=== PATIENT | female | born 1935 | race Caucasian/White ===

== ENCOUNTER → 2016-08-18 | Outpatient (CLI) | payer MEDICARE, BC ==
[~2016-08-18] MED LIST: ACET-1600 PO; ALBU18HF INH; ASCO500T12 PO; ASPI-496 PO; BECL8.7A5 INH; CETI10CA PO; CHOL100014 PO; ESOM40CA PO; FEXO180T72 PO; FLUT16SP NS; GADOBUTROL 7.5 MMOL/7.5 ML PFS ONE; GUAI400T26 PO; HYDR25TA6 PO; IPRA12.9 INH; LEVO137T2 PO; LORA10CA PO; LOSA25TA5 PO; LOVA40TA2 PO; MELO-184 PO; OXYC-229 PO; PRED10TA PO; PROP10DR2 EACHEYE; PYRI100T2 PO; RANI150T8 PO; TRAM50TA2 PO; VIT1CAPS16 PO; [UNRECOGNIZED DRUG - OTHER] PO
== END | disposition home or self-care (01) ==
LOC: RAD 12:03
PROVIDERS: ATTEND Internal Medicine
DX: I67.82 Cerebral ischemia (principal)
CPT/HCPCS: 70553; A9585

== ENCOUNTER → 2016-08-24 | Outpatient (CLI) | payer MEDICARE, BC ==
[~2016-08-24] MED LIST changes: +ALBU8.5H3 INH; +BUTA-177 PO; +FLAX1000 PO; -GADOBUTROL 7.5 MMOL/7.5 ML PFS ONE; +OMEG1CAP12 PO; +PSYL0.5215 PO; +TRAM1TAB6 PO; +[UNRECOGNIZED DRUG - OTHER] PO
== END | disposition home or self-care (01) ==
LOC: RAD 09:35
DX: Z51.89 Encounter for other specified aftercare (principal); R13.10 Dysphagia, unspecified
CPT/HCPCS: 74230

== ENCOUNTER → 2016-08-26 | Outpatient (CLI) | payer MEDICARE, BC ==
[2016-08-26 13:55] LABS: ASPARTATE AMINO TRANSFERASE 32 U/L (15-37); BLOOD UREA NITROGEN 17 mg/dL (7-18)
== END | disposition home or self-care (01) ==
LOC: STAR 12:24
PROVIDERS: ATTEND Specialist
DX: Z01.812 Encounter for preprocedural laboratory examination (principal); R13.10 Dysphagia, unspecified
CPT/HCPCS: 36415; 80053

== ENCOUNTER → 2016-10-05 | Outpatient (CLI) | payer MEDICARE, BC | END | disposition home or self-care (01) | LOC: LAB 16:22 | PROVIDERS: ATTEND Ophthalmology | DX: R51 Headache (principal) | CPT/HCPCS: 36415; 85651; 86140 ==

== ENCOUNTER 2017-02-23 10:24 | Emergency (ER) | payer MEDICARE, BC ==
[~2017-02-23] VITALS: Ht 160 cm; Wt 68.1 kg
[~2017-02-23 10:24] MED LIST changes: -ALBU8.5H3 INH; +ALBU8.5H8 INH; -BECL8.7A5 INH; +BECL8.7A7 INH; -GUAI400T26 PO; +GUAI400T66 PO; -MELO-184 PO; +MELO15TA24 PO; -OMEG1CAP12 PO; +OMEG1CAP23 PO; -OXYC-229 PO; +OXYC-307 PO
[2017-02-23] MEDS ORDERED: METHOCARBAMOL 750 MG TABLET ONE (11:23)
[2017-02-23] MEDS ORDERED: morphine SULFATE 10 MG/ML, 1ML ONE (11:24)
[2017-02-23] MEDS ORDERED: ONDANSETRON 2MG/ML, 2ML ONE (11:24)
[2017-02-23] MEDS ORDERED: MORPHINE SULFATE 4 MG/ML, 1ML IVPush PRN (11:30)
[2017-02-23] MEDS ORDERED: METHOCARBAMOL 750 MG TABLET PO ONE (11:30)
[2017-02-23] MEDS ORDERED: ONDANSETRON 2MG/ML, 2ML IVPush ONE (11:30)
[2017-02-23] MEDS ORDERED: SODIUM CHLORIDE FLUSH 10ML SYR IVF ONE (11:30)
[2017-02-23 11:43] LABS: HEMATOCRIT 34.6 % (34.6-47.8); HEMOGLOBIN 11.5 g/dL (11.7-16.4); WHITE BLOOD COUNT 15.1 x10^3/uL (3.4-10)
[2017-02-23 11:54] LABS: BLOOD UREA NITROGEN 19 mg/dL (7-18)
[2017-02-23 14:14] VITALS: BP 141/56
== END 2017-02-23 14:16 | disposition home or self-care (01) ==
LOC: ED 12:52
DX: M51.16 Intervertebral disc disorders with radiculopathy, lumbar region (principal); M54.42 Lumbago with sciatica, left side; M54.41 Lumbago with sciatica, right side; E03.9 Hypothyroidism, unspecified; J45.909 Unspecified asthma, uncomplicated; K21.9 Gastro-esophageal reflux disease without esophagitis; Z98.1 Arthrodesis status
CPT/HCPCS: 36415; 72110; 72170; 80048; 81003; 82040; 85025; 96374; 96375; 99285; J2405

== ENCOUNTER 2018-10-12 09:08 | Emergency (ER) | payer MEDICARE, BC ==
[~2018-10-12] VITALS: Ht 160 cm; Wt 69.8 kg
[~2018-10-12 09:08] MED LIST changes: +LOSA25TA25 PO; -LOSA25TA5 PO; +RANI150T23 PO; -RANI150T8 PO
--- NOTE | 2018-10-12 09:42 | NUR ---
PT TO RADIOLOGY WITH TECH TRANSPORT
[2018-10-12] MEDS ORDERED: SODIUM CHLORIDE FLUSH 10ML SYR IVF ONE (10:00)
[2018-10-12 10:23] LABS: MEAN CORPUSCULAR HEMOGLOBIN 27.6 pg (27.0-34.8); MEAN CORPUSCULAR HGB CONC 32.4 g/dL (32.4-35.8); MEAN CORPUSCULAR VOLUME 85.2 fL (80-100); MEAN PLATELET VOLUME 7.6 fL (7.4-10.4); PLATELET COUNT 302 x10^3/uL (130-400); RED BLOOD COUNT 3.68 x10^6/uL (3.82-5.3); RED CELL DISTRIBUTION WIDTH 15.2 % (9.6-15.2)
[2018-10-12 10:34] LABS: ALANINE AMINOTRANSFERASE 28 U/L (12-78); ANION GAP 7 mmol/L (5-15); CALCIUM 8.1 mg/dL (8.5-10.1); CHLORIDE 106 mmol/L (98-107); CREATININE 0.93 mg/dL (0.55-1.02)
[2018-10-12 10:39] LABS: ALKALINE PHOSPHATASE 71 U/L (45-117); BILIRUBIN,TOTAL 0.6 mg/dL (0.2-1.0); TOTAL PROTEIN 6.2 g/dL (6.4-8.2); TROPONIN I < 0.015 ng/mL (0.000-0.045)
[2018-10-12 10:42] LABS: BASOPHILS # (AUTO) 0.02 x10^3/uL (0-0.1); BASOPHILS % (AUTO) 0 % (0-1); EOSINOPHILS # (AUTO) 0.13 x10^3/uL (0-0.4); EOSINOPHILS % (AUTO) 1 % (1-7); LYMPHOCYTES # (AUTO) 1.01 x10^3/uL (1-3.4); LYMPHOCYTES % (AUTO) 8 % (22-44); MD SCAN; MONOCYTES # (AUTO) 0.89 x10^3/uL (0.2-0.8); MONOCYTES % (AUTO) 7 % (2-9); NEUTROPHILS # (AUTO) 11.18 x10^3/uL (1.8-6.8); NEUTROPHILS % (AUTO) 85 % (42-75)
[2018-10-12] MEDS ORDERED: KETOROLAC 30 MG/1 ML ONE (11:03)
[2018-10-12 11:15] LABS: MICROSCOPIC AUTO
[2018-10-12 11:18] LABS: CULTURE INDICATED? YES
[2018-10-12] MEDS ORDERED: KETOROLAC 30 MG/1 ML IM ONE (11:30)
[2018-10-12 12:28] VITALS: BP 111/52
--- NOTE | 2018-10-12 12:30 | NUR ---
Patient/Caregiver given discharge instructions and they have confirmed that they understand the instructions. Patient ambulatory to own wheeled walker.
== END 2018-10-12 12:31 | disposition home or self-care (01) ==
LOC: ED 11:41
DX: R07.89 Other chest pain (principal); R10.84 Generalized abdominal pain; K59.00 Constipation, unspecified; M19.90 Unspecified osteoarthritis, unspecified site; J45.909 Unspecified asthma, uncomplicated; I10 Essential (primary) hypertension; M54.9 Dorsalgia, unspecified; G89.29 Other chronic pain
CPT/HCPCS: 36415; 74022; 80053; 81001; 84484; 85025; 85379; 87086; 93005; 99284

== ENCOUNTER 2019-10-16 12:24 | Emergency (ER) | payer MEDICARE, BC ==
[~2019-10-16] VITALS: Ht 160 cm; Wt 65.0 kg
[~2019-10-16 12:24] MED LIST changes: -ASCO500T12 PO; +ASCO500T93 PO; -FLUT16SP NS; +FLUT16SP24 NS; -GUAI400T66 PO; +GUAI400T81 PO; +OSEL30CA2 PO; +OSEL75CA26 PO; +PRED5TAB PO; -PYRI100T2 PO; +PYRI100T9 PO; +RANI-467 PO; -RANI150T23 PO
--- NOTE | 2019-10-16 12:56 | NUR ---
EDWARDO VILLA AT BEDSIDE FOR INITIAL ASSESSMENT.
[2019-10-16] MEDS ORDERED: ONDANSETRON 2MG/ML, 2ML IVPush ONE (13:00)
[2019-10-16] MEDS ORDERED: MORPHINE SULFATE 4 MG/ML, 1ML IVPush PRN (13:00)
[2019-10-16] MEDS ORDERED: ONDANSETRON 2MG/ML, 2ML ONE (13:18)
[2019-10-16] MEDS ORDERED: MORPHINE SULFATE 4 MG/ML, 1ML ONE (13:18)
--- NOTE | 2019-10-16 13:25 | NUR ---
PT PRESENTS TO ED WITH C/O RIGHT FLANK PAIN X 3 DAYS, DENIES OTHER SX. PT IS A&O, RESPS EVEN AND UNLABORED. PIV PLACED, PT MEDICATED PER EMAR, TOLERATED WELL. PT TO CT AT THIS TIME. RN WAS UNABLE TO OBTAIN BLOOD SAMPLE FROM FROM PIV START, LAB PAGED TO DRAW PT.
--- NOTE | 2019-10-16 13:38 | NUR ---
PT BACK FROM CT, PT REPORTS FLANK PAIN IMPROVED SIGNIFICANTLY. PT A&O, RESPS EVEN AND UNLABORED, IN GOOD SPIRITS.
[2019-10-16 13:52] LABS: MEAN CORPUSCULAR HGB CONC 32.8 g/dL (32.4-35.8); MEAN CORPUSCULAR VOLUME 85.4 fL (80-100); MEAN PLATELET VOLUME 7.8 fL (7.4-10.4); PLATELET COUNT 314 x10^3/uL (130-400); RED BLOOD COUNT 4.11 x10^6/uL (3.82-5.3); RED CELL DISTRIBUTION WIDTH 15.4 % (9.6-15.2)
[2019-10-16 13:55] LABS: MICROSCOPIC NOT IND
[2019-10-16 14:05] LABS: ALANINE AMINOTRANSFERASE 32 U/L (12-78); ALBUMIN 3.4 g/dL (3.4-5.0); ANION GAP 9 mmol/L (5-15); CALCIUM 8.5 mg/dL (8.5-10.1); CHLORIDE 104 mmol/L (98-107); CREATININE 1.06 mg/dL (0.55-1.02)
[2019-10-16 14:07] LABS: ALKALINE PHOSPHATASE 73 U/L (45-117); BILIRUBIN,TOTAL 0.4 mg/dL (0.2-1.0); TOTAL PROTEIN 6.9 g/dL (6.4-8.2)
--- NOTE | 2019-10-16 14:14 | NUR ---
report given to OTTO Davidson at bedside.
[2019-10-16 14:16] LABS: BASOPHILS # (AUTO) 0.01 x10^3/uL (0-0.1); BASOPHILS % (AUTO) 0 % (0-1); EOSINOPHILS # (AUTO) 0.01 x10^3/uL (0-0.4); EOSINOPHILS % (AUTO) 0 % (1-7); LYMPHOCYTES # (AUTO) 0.46 x10^3/uL (1-3.4); LYMPHOCYTES % (AUTO) 4 % (22-44); MD SCAN; MONOCYTES % (AUTO) 2 % (2-9); NEUTROPHILS # (AUTO) 11.69 x10^3/uL (1.8-6.8); NEUTROPHILS % (AUTO) 95 % (42-75)
--- NOTE | 2019-10-16 14:22 | NUR ---
RECEIVED BEDSIDE REPORT AND CARE FROM MARLENE RN AT THIS TIME. DR. DONG AT BEDSIDE FOR RECHECK, DISCUSSING TEST RESULTS AND DISCHARGE POC. PT REPORTS "PAIN IS BETTER, LIKE MAYBE AN 8/10 NOW, COMES IN WAVES, BUT BETTER." PT RESTING IN POSITION OF COMFORT. DENIES NEED TO USE RESTROOM. FAMILY AT BEDSIDE. VSS. CALL LIGHT IN REACH. FALL PRECAUTIONS IN PLACE
[2019-10-16] MEDS ORDERED: SODIUM CHLORIDE FLUSH 10ML SYR IVF ONE (14:30)
[2019-10-16 14:54] VITALS: BP 121/64
== END 2019-10-16 14:57 | disposition home or self-care (01) ==
LOC: ED 13:50
DX: M54.5 Low back pain (principal); R10.9 Unspecified abdominal pain; R11.0 Nausea; K21.9 Gastro-esophageal reflux disease without esophagitis; E03.9 Hypothyroidism, unspecified; N17.9 Acute kidney failure, unspecified
CPT/HCPCS: 36415; 74176; 80053; 81003; 83690; 85025; 96374; 96375; 99285; J2270; J2405

== ENCOUNTER → 2020-03-17 | Outpatient (CLI) | payer MEDICARE, BC | END | disposition home or self-care (01) | LOC: CFH 10:30 | PROVIDERS: ATTEND Internal Medicine Cardiovascular Disease | DX: I08.8 Other rheumatic multiple valve diseases (principal); E78.5 Hyperlipidemia, unspecified; I11.9 Hypertensive heart disease without heart failure; I42.0 Dilated cardiomyopathy | CPT/HCPCS: 93306 ==

== ENCOUNTER 2021-01-08 07:29 | Outpatient (CLI) | payer MEDICARE, BC ==
[~2021-01-08 07:29] MED LIST changes: -OXYC-307 PO; +OXYC-501 PO; +REGADENOSON 0.4 MG/5 ML SYRINGE ONE
[2021-01-08] MEDS ORDERED: REGADENOSON 0.4 MG/5 ML SYRINGE ONE (08:49)
== END 2021-01-08 23:59 | disposition home or self-care (01) ==
LOC: CFH 07:29
PROVIDERS: ATTEND Physician Assistant Medical
DX: I25.9 Chronic ischemic heart disease, unspecified (principal); I10 Essential (primary) hypertension; R07.9 Chest pain, unspecified
CPT/HCPCS: 78452; 93017; A9502; J2785